=== PATIENT | male | born 1960 | race Hispanic/Latino ===

== ENCOUNTER 2025-08-20 13:29 | Emergency (ER) | payer BC, MEDICARE ==
[~2025-08-20] VITALS: Ht 162.6 cm; Wt 82.6 kg
[~2025-08-20 13:29] MED LIST: AMOX1TAB16 PO; LORA-726 PO
[2025-08-20 14:04] LABS: IMMATURE GRANULOCYTE ABSOLUTE 0.03 K/uL (0-1); NUCLEATED RED BLOOD CELLS 0.0 % (0.0-0.19); PLATELET COUNT (AUTO) 144 K/uL (130-400); RED BLOOD CELL COUNT(AUTO) 5.12 MIL/uL (4.50-6.20); RED CELL DISTRIBUTION WIDTH 12.4 % (11.0-15.5); WHITE BLOOD COUNT (AUTO) 10.3 K/uL (4.8-10.8)
--- NOTE | 2025-08-20 14:05 | EKG ---
[facility] Test Date: 2025-08-20 Test Time: 14:00:49 Pat Name: GAMALIEL CAZARES Department: ED Room: Gender: M [employer]: [facility]//student : 1960 Requested By: DAYSI RAMIREZ Order Number: [id number] Reading MD: Deya Yu Measurements Intervals [place] Rate: 82 P: 21 DE: 149 QRS: 23 QRSD: 66 T: 34 QT: 347 QTc: 406 Interpretive Statements Sinus rhythm Low voltage, precordial leads Compared to ECG 06/30/2024 11:45:57 Low QRS voltage now present Sinus bradycardia no longer present Electronically Signed On 08-22-2025 08:38:51 CDT by Deya Yu Please click the below link to view image of tracing.
[2025-08-20 14:13] LABS: CREATININE 0.9 mg/dL (0.5-1.3); GLOMERULAR FILTR. RATE CALC 94.0 mL/min (>90); GLUCOSE,RANDOM 115.0 mg/dL (70-105); SODIUM SERUM 134.0 mmol/L (136-145); UREA NITROGEN, BLOOD 12.0 mg/dL (7-18)
[2025-08-20 14:55] LABS: SARS-CoV-2, RNA, NAAT NEGATIVE SARS CoV-2 (NEGATIVE)
[2025-08-20 14:59] LABS: INFLUENZA TYPE A Negative For Type A (NEGATIVE); INFLUENZA TYPE B Negative For Type B (NEGATIVE)
--- NOTE | 2025-08-20 15:26 | HMCIMG ---
EXAM: CR Chest, 1 View. CLINICAL HISTORY: cp COMPARISON: None provided. FINDINGS: LUNGS: There is no mass, infiltrate, or acute pulmonary abnormality. PLEURAL SPACES: No evidence of pleural effusion or pneumothorax. MEDIASTINUM: Cardiac size and mediastinal contours within normal limits. BONES: No aggressive appearing osseous lesion seen. IMPRESSION: No acute cardiopulmonary pathology is evident. /[place]
--- NOTE | 2025-08-20 17:12 | ERN ---
ED Note History of Present Illness Stated Complaint: WEAKNESS Chief Complaint: Weakness Time Seen by MD: 13:37 Time Seen by Midlevel: 13:40 Dictation: 65 year old male coming in with complaints of generalized body weakness leading episode of what in an episode of chest discomfort. Denies any chest pain or chest discomfort at this time. Patient states he has wanted to be evaluated because he has been in his in his told him that he would be having a heart attack. Allergies: Coded Allergies: No Known Allergies (Unverified Allergy, Unknown, 06/27/24) Home Meds Active Scripts Amoxicillin/Potassium Clav (Amox Tr-K Clv 875-125 mg Tab) 875 Mg-125 Mg Tablet, 1 EACH PO BID for 7 Days, #14 TAB Prov:DONALD TREADWELL MD 07/02/24 Reported Medications Loratadine/Pseudoephedrine (Loratadine-D 12 Hour Tablet) 5 Mg-120 Mg Tab.er.12h, 1 EACH PO BID, TAB 06/27/24 Past Medical History Past Medical History: Diverticulitis Surgical History: None Surgical History Other: UNDESCENDED TESTICLES, HERNIA Review of System Dictation Constitutional: Negative for fever,chills, and weight loss Eyes: Negative for injury, pain,redness, and discharge ENT: Negative for injury,pain or swelling Cardiovascular: Negative for chest pain, palpitations, and edema Respiratory: Negative for shortness of breath, cough, and wheezing, Abdomen/GI: Negative for abdominal pain, nausea, vomiting, diarrhea, and constipation Back: Negative for injury and pain : Negative for injury, bleeding and discharge MS/Extremity: Negative for injury and deformity Skin: Negative for rash, and discoloration Neuro: Negative for headache, weakness, numbness, tingling, and seizure Psych: Negative for suicide ideation, homicidal ideation, and hallucinations Review of Systems: was completed Initial Vital Sign VS Vital Signs Date Time Temp Pulse Resp B/P (MAP) Pulse Ox O2 Delivery O2 Flow Rate FiO2 08/20/25 13:31 98.1 86 18 120/69 98 Room Air 0 08/20/25 16:30 21 Physical Exam Dictation General: awake, alert, NAD Head/Face: Normocephalic, atraumatic Eyes: PERRL, EOMI, vision at baseline ENT: oral cavity clear, TMs clear, no signs of infection Neck: Trachea midline, supple, no nuchal rigidity Cardiovascular: RRR, normal S1/S2, No MRGs, no JVD Respiratory: CTAB, no respiratory distress, No rales or wheezes Abdomen: Soft, non-tender, non-distended, normal bowel sounds, no guarding or rebound. Skin: Warm, dry, normal turgor, no rash MS/Extremity: Pulses equal, no cyanosis, neurovascular intact, FROM Neuro: COAx4, GCS 15, strength 5/5, CN 2-12 intact, normal cerebellar exam, normal gait, Psych: Normal behavior, mood, and affect normal Results (Laboratory/Radiology) Laboratory/Radiology Laboratory Tests Test 08/20/25 14:00 08/20/25 14:18 08/20/25 16:14 White Blood Count 10.3 K/uL (4.8-10.8) Red Blood Count 5.12 MIL/uL (4.50-6.20) Hemoglobin 15.4 g/dL (14.0-18.0) Hematocrit 44.7 % (42-54) Mean Corpuscular Volume 87.3 fL (79-99) Mean Corpuscular Hemoglobin 30.1 pg (27.0-33.0) Mean Corpuscular Hemoglobin Concent 34.5 g/dL (32.0-36.0) Red Cell Distribution Width 12.4 % (11.0-15.5) Platelet Count 144 K/uL (130-400) Mean Platelet Volume 8.5 fL (7.5-10.5) Immature Granulocyte % (Auto) 0.3 % (0-1) Neutrophils (%) (Auto) 91.3 % (40.0-77.0) H Lymphocytes (%) (Auto) 3.1 % (21.0-51.0) L Monocytes (%) (Auto) 4.7 % (3.0-13.0) Eosinophils (%) (Auto) 0.3 % (0.0-8.0) Basophils (%) (Auto) 0.3 % (0.0-5.0) Neutrophils # (Auto) 9.4 K/uL (1.8-7.7) H Lymphocytes # (Auto) 0.3 K/uL (1.0-4.8) L Monocytes # (Auto) 0.5 K/uL (0.1-1.0) Eosinophils # (Auto) 0.03 K/uL (0.00-0.70) Basophils # (Auto) 0.03 K/uL (0.00-0.20) Absolute Immature Granulocyte (auto 0.03 K/uL (0-1) Nucleated Red Blood Cells 0.0 % (0.0-0.19) White Cell Morphology Comment See comments Sodium Level 134 mmol/L (136-145) L Potassium Level 3.6 mmol/L (3.5-5.1) Chloride Level 101 mmol/L (101-111) Carbon Dioxide Level 24 mmol/L (21-32) Blood Urea Nitrogen 12 mg/dL (7-18) Creatinine 0.9 mg/dL (0.5-1.3) Glomerular Filtration Rate Calc 94 mL/min (>90) Random Glucose 115 mg/dL (70-105) H Total Calcium 8.7 mg/dL (8.5-10.1) Troponin I High Sensitivity 6 ng/L (4-75) 6 ng/L (4-75) B-Type Natriuretic Peptide 30 pg/mL (0-100) Influenza Type A Antigen Negative For Type A Influenza Type B Antigen Negative For Type B SARS-CoV-2, RNA, NAAT NEGATIVE SARS CoV-2 Labs Reviewed?: Yes X-RAY Comment: [address] [address] IMAGING REPORT Signed PATIENT: GAMALIEL CAZARES MR#: [id number] : 1960 SEX: M AGE: 65 LOCATION: [facility] ORDER [id number] STATUS: REG REPORT#: [id number] SERVICE 1348 REASON: cp ORDERING PHYSICIAN: DAYSI RAMIREZ NP PROCEDURE: CXR1VW - CHEST 1VW EXAM: CR Chest, 1 View. CLINICAL HISTORY: cp COMPARISON: None provided. FINDINGS: LUNGS: There is no mass, infiltrate, or acute pulmonary abnormality. PLEURAL SPACES: No evidence of pleural effusion or pneumothorax. MEDIASTINUM: Cardiac size and mediastinal contours within normal limits. BONES: No aggressive appearing osseous lesion seen. IMPRESSION: No acute cardiopulmonary pathology is evident. /[place] DICTATED BY: JENNIFER FRIEDMAN MD DATE: 08/20/251624 ELECTRONICALLY SIGNED BY: JENNIFER FRIEDMAN MD DATE: 08/20/251624 ED Course ED Course Orders Procedure Category Date Status Time Cbc With Differential LAB 08/20/25 Complete 13:49 Basic Metabolic Panel LAB 08/20/25 Complete 13:49 Troponin I High LAB 08/20/25 Complete Sensitivity 13:49 Chest 1vw RAD 08/20/25 Resulted 13:49 B-Type Natriuretic LAB 08/20/25 Complete Peptide 13:49 Covid Rna Naat LAB 08/20/25 Complete 13:49 Influenza Type A & B, LAB 08/20/25 Complete Rapid 13:49 12 Lead Ekg Tracing- EKG 08/20/25 Complete Technical 13:49 Troponin I High LAB 08/20/25 Complete Sensitivity 15:58 Vital Signs Date Time Temp Pulse Resp B/P (MAP) Pulse Ox O2 Delivery O2 Flow Rate FiO2 08/20/25 16:30 98.1 90 18 121/65 98 Room Air* 0 21 08/20/25 13:31 98.1 86 18 120/69 98 Room Air 0 HEART Score Response (Comments) Value History: Low suspicion (0) 0 EKG: Normal 0 Age: > 65yrs (+2) 2 Risk Factors: No known risk factors (0) 0 Initial Troponin: Normal limit (0) 0 Total 2 Medical Decision Making MDM MDM: 65 year old male coming in with complaints of generalized body weakness leading episode of what in an episode of chest discomfort. Denies any chest pain or chest discomfort at this time. Patient states he has wanted to be evaluated because he has been in his in his told him that he would be having a heart attack. Blood work is unremarkable. Troponin x2 negative. EKGs did not show any ST elevations or dysrhythmias. Heart score is two, low risk. Chest x- ray shows no acute finding. Patient has a remained stable, pain-free here in the emergency room. Discussed with the patient that he needs to follow up outpatient with PCP and possibly cardiology. Patient verbalized understanding, answered all questions. Differential diagnosis: Dehydration, vasovagal, WI, Rationale: Tests considered and ordered secondary to shared decision making include: Previous outside records reviewed: Old ER visits. Risk of complication and/or morbidity or mortality of patient management: None Medications-Per medication reconciliation Need for hospitalization: Patient does not meet criteria for hospitalization. Need for emergency major/minor surgery: No There are no social concerns with this patient. Prescription drug management Prescriptions will include symptomatic care Patient's prior external medical records from other ER visits were reviewed by me as indicated. Prior testing and results from previous visits were reviewed. Prior tests were taken into account with medical decision making and resource utilization, independent historian/historians were used to obtain complete medical history. I independently interpreted the test that were performed, results were reviewed by me and considered findings on radiology if ordered. Medical management and examination interpretation discussions were had by me with other qualified healthcare professionals as indicated for the patient's care. DX & DISP Disposition: Discharge Departure Impression: Primary Impression: Episode of generalized weakness Additional Impression: Mild dehydration Condition: Stable Additional Instructions: Follow up with your primary doctor in 1-2 days. Return to the hospital if you have recurrent symptoms or worsening symptoms. Referrals: MACK SÁNCHEZ JR, MD (PCP) Time of Disposition: 17:11 I have reviewed the case, and I agree with, Diagnosis and Plan DAYSI RAMIREZ NP Aug 20, 2025 17:12 ZEB HERNANDEZ DO Aug 20, 2025 17:40
[2025-08-20 17:46] VITALS: BP 118/63; PULSE 72; RESP 18; TEMP 98.1; O2SAT 98
== END 2025-08-20 17:49 | disposition home or self-care (01) ==
LOC: EDH 13:29
DX: R53.1 Weakness (principal); E86.0 Dehydration; Z20.822 Contact with and (suspected) exposure to COVID-19
CPT/HCPCS: 36415; 71045; 80048; 83880; 84484; 85025; 87635; 87804; 93005; 99284